=== PATIENT | male | born 1970 | race Caucasian/White ===

== ENCOUNTER 2017-07-20 18:15 | Emergency (ER) | payer BC ==
[~2017-07-20] VITALS: Ht 177.8 cm; Wt 60.8 kg
[2017-07-20 19:22] LABS: HEMATOCRIT 41.8 % (38.0-50.0); MCH 31.6 PG (29.0-34.0); MCHC 35.4 G/DL (30.0-36.0); MCV 89.1 FL (86-99); MEAN PLAT.VOLUME 9.7 uM^3 (9.0-12.4); PLATELET COUNT 201 K/uL (156-360); RBC DIS.WIDTH-CV 11.6 % (11.8-14.6); RBC DIS.WIDTH-SD 37.2 % (39-53); RED BLOOD COUNT 4.69 M/uL (4.00-5.50); WHITE BLOOD COUNT 4.5 K/uL (4.1-10.2)
[2017-07-20 19:41] LABS: CHLORIDE 110 mEq/L (99-109); POTASSIUM 3.3 mEq/L (3.7-5.4); SODIUM 141 mEq/L (136-147)
[2017-07-20 19:43] LABS: GLUCOSE 98 mg/dL (70-99)
[2017-07-20 19:44] LABS: ANION GAP 13 MEQ/L (2-14)
[2017-07-20 19:47] LABS: GFR ESTIMATE (CALCULATED) > 59 mL/min/
[2017-07-20 19:48] LABS: UREA NITROGEN (BUN) 15 mg/dL (9-23)
[2017-07-20 19:51] LABS: TROP-I INTERPRETATION NEGATIVE; TROPONIN-I < 0.01 ng/mL (0.0-0.30)
[2017-07-20] MEDS ORDERED: ANTIVERT25 MG PO (20:50)
[2017-07-20 21:26] VITALS: BP 126/87
== END 2017-07-20 21:30 | disposition home or self-care (01) ==
LOC: EME 18:15
PROVIDERS: Emergency Medicine
DX: H81.10 Benign paroxysmal vertigo, unspecified ear (principal); F41.0 Panic disorder [episodic paroxysmal anxiety]; R11.2 Nausea with vomiting, unspecified; Z87.891 Personal history of nicotine dependence
CPT/HCPCS: 80048; 84484; 85027; 93005; 99281; 99285; J2060; J2405; J7030